=== PATIENT | male | born 1970 | race Two or more races ===

== ENCOUNTER 2023-03-23 04:27 | Emergency (ER) | payer MEDICAID, OTHER ==
[~2023-03-23] VITALS: Ht 175.3 cm; Wt 90.7 kg
[2023-03-23] MEDS ORDERED: LORAZEPAM 0.5 MG TABLET PO ONE (04:45)
[2023-03-23] MEDS ORDERED: OLANZAPINE 5 MG TABLET PO ONE (04:45)
[2023-03-23] MEDS ORDERED: LORAZEPAM 1 MG TABLET ONE (04:51)
[2023-03-23] MEDS ORDERED: OLANZAPINE 5 MG TABLET ONE (04:51)
[2023-03-23 05:07] LABS: HEMATOCRIT 42.9 % (36.7-47.1); MEAN CORPUSCULAR HEMOGLOBIN 31.4 uug (23.8-33.4); MEAN CORPUSCULAR VOLUME 90.9 fL (73.0-96.2); PLATELET COUNT (AUTO) 260 K/uL (152-348)
[2023-03-23 05:14] LABS: CARBON DIOXIDE 25 mmol/L (21-32); CHLORIDE 102 mmol/L (98-107); GLUCOSE 104 mg/dL (74-106); POTASSIUM 5.6 mmol/L (3.5-5.1); UREA NITROGEN, BLOOD 40 mg/dL (7-18)
[2023-03-23 05:20] LABS: ALANINE AMINOTRANSFERASE 76 U/L (16-63); ALKALINE PHOSPHATASE 110 U/L (50-136); ASPARTATE AMINOTRANSFERASE 175 U/L (15-37); BILIRUBIN,DIRECT 0.1 mg/dL (0.0-0.2); BILIRUBIN,TOTAL 0.7 mg/dL (0.2-1.0); TOTAL PROTEIN, SERUM 9.8 g/dL (6.4-8.2)
[2023-03-23 05:21] LABS: ACETAMINOPHEN < 2.0 ug/mL (10-30)
[2023-03-23 05:28] LABS: THYROID STIMULATING HORMONE 3.925 mIU/mL (0.358-3.740)
[2023-03-23] MEDS ORDERED: SODIUM POLYSTYRENE SULFONATE 15 G/60 ML LIQUID UDC PO ONE (05:45)
[2023-03-23] MEDS ORDERED: diphenhydrAMINE 50 MG CAPSULE PO ONE (05:45)
--- NOTE | 2023-03-23 07:35 | NUR ---
Per report pt left AMA during previous shift.
== END 2023-03-23 07:36 | disposition left against medical advice (07) ==
LOC: ER 04:27
DX: R44.0 Auditory hallucinations (principal); N18.9 Chronic kidney disease, unspecified; F10.129 Alcohol abuse with intoxication, unspecified; E87.5 Hyperkalemia; Z59.00 Homelessness unspecified
CPT/HCPCS: 36415; 84443; 85025; A4663; G0480